=== PATIENT | male | born 1985 ===

== ENCOUNTER 2017-12-27 22:34 | Emergency (ER) | payer OTHER ==
[2017-12-27 22:51] VITALS: RESP 18
--- NOTE | 2017-12-27 23:19 | C.PDOC ---
History Of Present Illness 32 y/o male brought in for evaluation via EMS s/p drug relapse that occurred yesterday. Patient states he has been sober for 1 year after detoxing from crystal meth and alcohol. A few months ago he started drinking sporadically, but stayed away from drug use. Yesterday he used crystal meth again. He then came home last night, realized it was a mistake. States he felt slightly paranoid and was hearing things, but he attributed symptoms to the drugs. Patient's then called his [id number] family, who called 911 and sent EMS to the house. Patient appears somewhat anxious on arrival but offers no acute complaints. He denies any SI, HI, hallucinations. States he feels better. Time Seen by Provider: 12/27/17 23:03 Chief Complaint (Nursing): Psychiatric Evaluation History Per: Patient History/Exam Limitations: no limitations Onset/Duration Of Symptoms: Hrs Current Symptoms Are (Timing): Gone Modifying Factor(s): Other (Meth) Associated Symptoms: denies: Suicidal Thoughts, Suicidal Plan Involuntary Hold By: None Past Medical History Reviewed: Historical Data, Nursing Documentation, Vital Signs Vital Signs: Last Vital Signs Temp 98.9 F 12/27/17 22:45 Pulse 121 H 12/27/17 22:45 Resp 18 12/27/17 22:45 BP 122/89 12/27/17 22:45 Pulse Ox 97 12/27/17 22:45 Family History: States: No Known Family Hx - Social History Hx Alcohol Use: Yes Hx Substance Use: Yes Review Of Systems Constitutional: Negative for: Fever Gastrointestinal: Negative for: Nausea, Vomiting Neurological: Negative for: Weakness, Confusion Psych: Negative for: Psychosis, Suicidal ideation, Other (hallucinations) Physical Exam - Physical Exam Appears: Well, Non-toxic, No Acute Distress Skin: Warm, Dry Head: Atraumatic, Normacephalic Eye(s): bilateral: Normal Inspection, PERRL, EOMI Oral Mucosa: Dry Neck: Normal ROM Chest: Symmetrical Cardiovascular: Rhythm Regular Respiratory: Normal Breath Sounds, No Accessory Muscle Use Extremity: Bilateral: Atraumatic, Normal Color And Temperature, Normal ROM Neurological/Psych: Oriented x3, Normal Speech, Other (Good insight) ED Course And Treatment O2 Sat by Pulse Oximetry: 97 (RA) Pulse Ox Interpretation: Normal Medical Decision Making Medical Decision Making: Impression: S/p meth use yesterday Plan: Patient has no signs or symptoms of acute intoxication. Denies having any acute complaints. Patient has good insight to his problems and has a plan, reports he signed up for outpatient program starting next week. Counseled regarding course of discharge and the importance of following through with outpatient care. Disposition - Disposition Referrals: Alcoholics Anonymous [Outside] [facility] [Outside] Disposition: HOME/ ROUTINE Disposition Time: 23:17 Condition: STABLE Instructions: Drug Abuse and Drug Addiction (DC), Meth Mouth Forms: [employer] (H[place]er) - Clinical Impression Clinical Impression: Methamphetamine abuse, episodic - Scribe Statement The provider has reviewed the documentation as recorded by the Scribe (Jazmin Vicente) Provider Attestation: All medical record entries made by the Scribe were at my direction and personally dictated by me. I have reviewed the chart and agree that the record accurately reflects my personal performance of the history, physical exam, medical decision making, and the department course for this patient. I have also personally directed, reviewed, and agree with the discharge instructions and disposition.
[2017-12-27 23:34] VITALS: BP 131/98; PULSE 103; TEMP 98.3
[2017-12-27 23:36] VITALS: O2SAT 97
== END 2017-12-27 23:35 | disposition home or self-care (01) ==
LOC: C.ER 22:34
DX: F15.10 Other stimulant abuse, uncomplicated (principal)